=== PATIENT | male | born 1990 | race Caucasian/White ===

== ENCOUNTER 2019-11-05 21:49 | Emergency (ER) | payer BC ==
[~2019-11-05] VITALS: Ht 172.7 cm; Wt 64.5 kg
[2019-11-05 21:50] VITALS: BP 115/58
[2019-11-05] MEDS ORDERED: AUGM875T28 PO (22:43)
[2019-11-05] MEDS ORDERED: AUGMENTIN 875 MG TAB PO ONE (22:45)
[2019-11-05] MEDS ORDERED: NORCO, ANEXSIA 5/325MG TABLET (HYDROcodone/ACETAMINOPHEN) PO ONE (22:45)
== END 2019-11-05 22:50 | disposition home or self-care (01) ==
LOC: M ED 21:49
DX: K04.7 Periapical abscess without sinus (principal); R68.84 Jaw pain; F17.200 Nicotine dependence, unspecified, uncomplicated

== ENCOUNTER 2023-05-30 15:48 | Emergency (ER) | payer SELFPAY ==
[~2023-05-30] VITALS: Ht 172.7 cm; Wt 65.2 kg
[~2023-05-30 15:48] MED LIST: AUGM875T28 PO
[2023-05-30 17:51] VITALS: BP 119/71; TEMP 99.5; O2SAT 100
[2023-05-30] MEDS ORDERED: VENTAER INH (18:41)
== END 2023-05-30 18:46 | disposition home or self-care (01) ==
LOC: M ED 15:48
DX: J10.1 Influenza due to other identified influenza virus with other respiratory manifestations (principal); F17.210 Nicotine dependence, cigarettes, uncomplicated; Z79.51 Long term (current) use of inhaled steroids

== ENCOUNTER 2024-05-24 10:32 | Emergency (ER) | payer OTHER, SELFPAY ==
[~2024-05-24] VITALS: Ht 172.7 cm; Wt 66.0 kg
[~2024-05-24 10:32] MED LIST changes: +VENTAER INH
[2024-05-24] MEDS: BOOSTRIX VACCINE (TETANUS/DIPHTH/ACEL. PERTUSSIS) 0.5ML SYR IM ONE (11:21)
[2024-05-24 11:30] VITALS: BP 120/64; TEMP 97.3; O2SAT 98
== END 2024-05-24 12:01 | disposition home or self-care (01) ==
LOC: M ED 10:32
DX: S60.942A Unspecified superficial injury of right middle finger, initial encounter (principal); Y92.9 Unspecified place or not applicable; Y93.9 Activity, unspecified; Y99.0 Civilian activity done for income or pay; J45.909 Unspecified asthma, uncomplicated; Z23 Encounter for immunization; Z79.51 Long term (current) use of inhaled steroids